=== PATIENT | male | born 1975 | race Caucasian/White ===

== ENCOUNTER 2017-12-13 10:01 | Emergency (ER) | payer OTHER ==
[~2017-12-13] VITALS: Ht 188 cm; Wt 128.0 kg
[2017-12-13 10:19] VITALS: BP 133/92
[2017-12-13] MEDS ORDERED: cefTRIAXone 1,000 MG in LIDOCAINE 1% ***ER ONLY *** 2.1 ML IM ONE (11:00)
[2017-12-13] MEDS ORDERED: KETOROLAC 60 MG/2 ML VIAL IM ONE (11:00)
[2017-12-13] MEDS ORDERED: LEVOFLOXACIN 500 MG TAB PO ONE (11:00)
[2017-12-13 11:33] LABS: BILIRUBIN,URINE NEGATIVE (NEGATIVE); BLOOD, URINE 2+ (NEGATIVE); COLOR,URINE YELLOW (YELLOW); LEUKOCYTE ESTERASE ,URINE 1+ (NEGATIVE); NITRITE, URINE POSITIVE (NEGATIVE); UGLUCOSE NEGATIVE (NEGATIVE)
[2017-12-13 11:36] LABS: APPEARANCE,URINE CLOUDY (CLEAR)
[2017-12-13 11:39] LABS: BARBITURATE, URINE NEG. ng/ml (NEG <=200); BENZODIAZEPINE, URINE NEG. ng/mL (NEG <=200); CANNABINOID, URINE POS. ng/mL (NEG <=50); COCAINE, URINE NEG. ng/mL (NEG <=300); OPIATE, URINE NEG. ng/mL (NEG <=2000)
[2017-12-13 11:49] LABS: RBC,URINE 11-20 (MOD) /HPF (0-5)
[2017-12-13 11:50] LABS: WBC,URINE 20-60 /HPF (0-5)
[2017-12-13 12:29] LABS: PHENCYCLIDINE SCREEN,URINE NEG ng/mL (NEG <=25)
[2017-12-13 14:12] VITALS: BP 128/87
== END 2017-12-13 14:11 | disposition home or self-care (01) ==
LOC: MED 10:01
DX: N45.1 Epididymitis (principal); N43.3 Hydrocele, unspecified; N39.0 Urinary tract infection, site not specified
CPT/HCPCS: 76870; 80305; 81001; 87086; 96372; 99285; J0696; J1885; J2001; Q0092

== ENCOUNTER 2020-04-01 22:50 | Emergency (ER) | payer SELFPAY ==
[~2020-04-01] VITALS: Ht 188 cm; Wt 108.9 kg
[2020-04-01 22:55] VITALS: BP 140/87
--- NOTE | 2020-04-01 22:58 | NUR ---
to lobby a/w bed ambulatory
--- NOTE | 2020-04-01 23:11 | NUR ---
44 YR OLD MALE PRESENTED TO THE ER WITH CHIEF COMPLAINT OF RIGHT ANKLE/FOOT PAIN. PATIENT IS AOX4. PATIENT STATES RIGHT FOOT/ANKLE PAIN IS 9/10. PATIENT STATES PAIN IS NON-RADIATING AND DESCRIBES IT A BURNING PAIN WITH A SUDDEN ONSET 2 DAYS AGO. PATIENT HAS SLIGHT REDNESS IN THE MEDIAL ASPECT OF RIGHT ANKLE WITH NO SIGNS OF SWELLING. PATIENT STATED SMOKING 2 MARIJUANA JOINTS 2 DAYS AGO. PATIENT BREATHING IS UNLABORED WITH EQUAL RISE AND FALL UPON RESPIRATIONS. BED IS LOCKED IN LOWEST POSITION WITH 2 SIDE RAILS UP. CALL LIGHT WITHIN REACH. WILL CONTINUE TO MONITOR. HISTORY- NONE ALLERGIES- NONE
[2020-04-01 23:34] VITALS: BP 140/87
--- NOTE | 2020-04-01 23:34 | NUR ---
Patient discharged with v/s stable. Written and verbal after care instructions given and explained. Patient alert, oriented and verbalized understanding of instructions. Ambulatory with steady gait. All questions addressed prior to discharge. ID band removed. Patient advised to follow up with PMD. Rx of BACTRIM AND KEFLEX given. Patient educated on indication of medication including possible reaction and side effects. Opportunity to ask questions provided and answered.
== END 2020-04-01 23:34 | disposition home or self-care (01) ==
LOC: MED 22:50
DX: L03.116 Cellulitis of left lower limb (principal); L03.115 Cellulitis of right lower limb
CPT/HCPCS: 99283; 99284

== ENCOUNTER 2020-05-01 22:19 | Emergency (ER) | payer SELFPAY ==
[~2020-05-01] VITALS: Ht 188 cm; Wt 113.4 kg
[2020-05-01 22:26] VITALS: BP 134/75
--- NOTE | 2020-05-01 22:27 | NUR ---
TO BED AMBULATORY
--- NOTE | 2020-05-01 22:52 | NUR ---
44 y/o male c/o of bilateral leg pain x 1 day. redness noted bilateral with nonpitting edema; warm to touch.pain is a burning 9/10; non-radiating. a/ox4 gcs 15; symmetrical breathing; abdomen soft and nondistended. patient able to ambulate without difficulty. ermd made aware. will continue to monitor. HR is 111 at this time nkda meds-none pmh: none
[2020-05-01] MEDS ORDERED: CLINDAMYCIN 600 MG/4 ML VIAL IM STA (23:58)
[2020-05-02 00:38] VITALS: BP 139/97
--- NOTE | 2020-05-02 00:38 | NUR ---
Patient discharged with v/s stable. Written and verbal after care instructions given and explained. Patient alert, oriented and verbalized understanding of instructions. Ambulatory with steady gait. All questions addressed prior to discharge. ID band removed. Patient advised to follow up with PMD. Rx of Clindamycin given. Patient educated on indication of medication including possible reaction and side effects. Opportunity to ask questions provided and answered.
== END 2020-05-02 00:38 | disposition home or self-care (01) ==
LOC: MED 22:19
DX: L03.115 Cellulitis of right lower limb (principal); L03.116 Cellulitis of left lower limb; R00.0 Tachycardia, unspecified
CPT/HCPCS: 96372; 99283; J3490

== ENCOUNTER 2020-05-11 14:17 | Inpatient (IN) | payer MEDICAID, SELFPAY ==
[~2020-05-11] VITALS: Ht 182.9 cm; Wt 124.3 kg
--- NOTE | 2020-05-11 07:20 | NUR ---
ENDORSED TO ANIMAL TECHNICIAN NURSE FOR CONTINUITY OF CARE. PT IS STABLE. Addendum: 05/11/20 at 194 by Leonel Davidson RN RN WRONG TIME 1919*
[2020-05-11 14:24] VITALS: BP 143/80
--- NOTE | 2020-05-11 14:28 | NUR ---
Pt ambulated to ER bed 8.
--- NOTE | 2020-05-11 14:42 | NUR ---
44 YEAR OLD MALE COMPLAINS OF BLE EDEMA EXACERBATION X 1 WEEK. PER PATIENT, BLE PRESENT X 1 MONTH, WITH NEW ONSET UNBEARABLE DISCOMFORT TODAY. PATIENT DENIES PAIN BUT STATES "FEELS LIKE A BAD SUNBURN". PITTING EDEMA PRESENT BLE, CAP REFILL <3 SECONDS ALL TOES, SENSATION INTACT. BLE SKIN INTACT, RED IN COLOR, WARM TEMPERATURE. PATIENT DENIES DRAINAGE. PATIENT CAME IN WITH PRESCRIBED CLINDAMYCIN; CLAIMS TO FEEL "BURNING SENSATION" WHEN SWALLOWED. AO4, SKIN WARM AND DRY, BREATHING EVEN AND UNLABORED. BED IN LOWEST POSITION, LOCKED, X1 SIDERAIL UP, LOWER EXTREMITIES ELEVATED. PMH - CELLULITIS NKA
[2020-05-11] MEDS ORDERED: KETOROLAC 15 MG/ML VIAL IVP ONE (15:20)
[2020-05-11] MEDS ORDERED: VANCOMYCIN 500 MG in DEXTROSE 5% 100 ML IV SCH (15:20)
--- NOTE | 2020-05-11 15:30 | NUR ---
PATIENT AWAKE AND ALERT, BREATHING EVEN AND UNLABORED. NO APPARENT DISTRESS. WILL CONTINUE TO MONITOR.
[2020-05-11 15:54] LABS: BASOPHILS # (AUTO) 0.1 K/uL (0.00-0.22); BASOPHILS % (AUTO) 1.1 % (0.0-2.0); EOSINOPHILS # (AUTO) 0.4 K/uL (0-0.4); EOSINOPHILS % (AUTO) 4.7 % (0.0-4.0); HEMOGLOBIN 12.4 g/dL (12.0-18.0); LYMPHOCYTES # (AUTO) 1.9 K/uL (2.0-11.5); LYMPHOCYTES % (AUTO) 21.6 % (20.5-51.1); MEAN CORPUSCULAR HEMOGLOBIN 29 pg (27-31); MEAN CORPUSCULAR HGB CONC 33 g/dL (33-37); MEAN CORPUSCULAR VOLUME 89.4 fL (80-94); MONOCYTES # (AUTO) 0.6 K/uL (0.8-1.0); MONOCYTES % (AUTO) 6.8 % (1.7-9.3); NEUTROPHILS # (AUTO) 5.7 K/uL (1.8-7.7); NEUTROPHILS % (AUTO) 65.8 % (42.2-75.2); PLATELET COUNT (AUTO) 338 K/uL (140-450); RED BLOOD CELL COUNT(AUTO) 4.25 MIL/uL (4.20-6.10); RED CELL DISTRIBUTION WIDTH 15.1 % (11.6-13.7); WHITE BLOOD COUNT (AUTO) 8.7 K/uL (4.8-10.8)
[2020-05-11] MEDS ORDERED: cefTRIAXone 1,000 MG VIAL ONE (16:05)
[2020-05-11 16:11] LABS: PROTHROMBIN TIME 9.3 secs (10.8-13.4)
[2020-05-11] MEDS ORDERED: VANCOMYCIN 500 MG VIAL ONE (16:34)
[2020-05-11 16:39] LABS: ALBUMIN 2.9 g/dL (3.4-5.0); ANION GAP 9.8 (8-16); CARBON DIOXIDE 27.9 mmol/L (21-32); POTASSIUM 3.7 mmol/L (3.5-5.1); TOTAL BILIRUBIN 0.2 mg/dL (0.0-1.0)
--- NOTE | 2020-05-11 16:51 | NUR ---
PATIENT AWAKE AND ALERT, BREATHING EVEN AND UNLABORED. NO APPARENT DISTRESS. WILL CONTINUE TO MONITOR.
--- NOTE | 2020-05-11 16:58 | NUR ---
DONTE SWAB OBTAINED AND GIVEN TO LAB
[2020-05-11] MEDS ORDERED: KETOROLAC 15 MG/ML VIAL IVP PRN (17:25)
[2020-05-11] MEDS ORDERED: NACL 0.9% 1,000 ML IV ONE (17:25)
[2020-05-11] MEDS ORDERED: CLIN150C1 PO (17:41)
--- NOTE | 2020-05-11 17:50 | NUR ---
RECEIVED TELEPHONE REPORT FROM ER NURSE.
--- NOTE | 2020-05-11 17:51 | NUR ---
Patient will be admitted to care of Dr Godinez. Admited to [facility]. Will go to room 106A. Belongings list completed. Report to Thaddeus MATIAS.
--- NOTE | 2020-05-11 17:55 | NUR ---
PATIENT TAKEN TO [facility] 106A VIA GURNEY BY CATHERINE PAN
[2020-05-11 18:00] VITALS: BP 112/58
--- NOTE | 2020-05-11 18:00 | NUR ---
RECEIVED PATIENT REPORT FROM ER NURSE. PATIENT IS AO X4. ABLE TO MAKE NEEDS KNOWN. RESPIRATIONS EVEN AND UNLABORED. ON ROOM AIR. NO S/S OF RESPIRATORY DISTRESS NOTED. SKIN IS WARM, DRY, AND INTACT. PT HAS PITTING EDEMA +3 ON BILATERAL LOWER EXTREMITIES. NO COMPLAIN OF PAIN AT THIS MOMENT. ABDOMEN SOFT, ROUND, AND NONDISTENDED. BOWEL SOUNDS ACTIVE IN ALL 4 QUADRANTS. PLAN OF CARE DISCUSSED. SAFETY PRECAUTIONS IN PLACE. BED IN LOW POSITION AND CALL LIGHT WITHIN REACH. WILL CONTINUE TO MONITOR.
--- NOTE | 2020-05-11 19:20 | NUR ---
ENDORSED TO BUSINESS AND FINANCIAL COUNSEL NURSE FOR CONTINUITY OF CARE. PT IS STABLE.
[2020-05-11 20:00] VITALS: BP 127/65
[2020-05-12 04:00] VITALS: BP 143/88
--- NOTE | 2020-05-12 07:57 | NUR ---
Patient awake, alert and oriented. Redness noted to his bilateral feet and swelling to lower extremities. Denies pain and noted to be sitting on edge of the bed.
--- NOTE | 2020-05-12 08:04 | NUR ---
PATIENT HAS BEEN SCREENED AND CATEGORIZED LOW NUTRITION RISK. PATIENT WILL BE SEEN WITHIN 7 DAYS OF ADMISSION. 05/18/[address]
[2020-05-12 08:25] VITALS: BP 130/77
[2020-05-12] MEDS ORDERED: ONDANSETRON 4 MG/2 ML VIAL IM/IVP PRN (10:05)
[2020-05-12] MEDS ORDERED: ACETAMINOPHEN 325 MG TAB PO PRN (10:05)
[2020-05-12] MEDS ORDERED: KETOROLAC 15 MG/ML VIAL IVP PRN (10:05)
[2020-05-12] MEDS ORDERED: NACL 0.9% 1,000 ML IV SCH (10:05)
[2020-05-12] MEDS ORDERED: DOCUSATE SODIUM 100 MG GELCAP PO PRN (10:05)
[2020-05-12] MEDS ORDERED: ZOLPIDEM 5 MG TAB PO PRN (10:05)
[2020-05-12] MEDS ORDERED: LORazepam 2 MG/ML VIAL IM/IVP PRN (10:05)
[2020-05-12] MEDS ORDERED: POTASSIUM CHLORIDE 10 MEQ TABER PO PRN (10:10)
[2020-05-12] MEDS ORDERED: DEXTROSE 50% 50 ML SYR IVP PRN (10:10)
[2020-05-12] MEDS ORDERED: INSULIN LISPRO SLIDING SCALE 100 UNITS/ML VIAL SUBQ PRN (10:10)
[2020-05-12] MEDS ORDERED: MAG SULF 2000 MG/WATER PREMIX 50 ML IV PRN (10:10)
[2020-05-12] MEDS ORDERED: VANCOMYCIN PER PHARMACY MC PRN (10:15)
[2020-05-12] MEDS ORDERED: ECOTRIN 81 MG TABEC PO SCH ×2 (11:00)
--- NOTE | 2020-05-12 11:16 | NUR ---
Patient leaving against medical advice. Told importance of staying, following orders per physician and risks but patient opted to leave.
[2020-05-12] MEDS ORDERED: BLOOD GLUCOSE MONITORING 1 DEV DEV FS SCH (11:30)
[2020-05-12] MEDS ORDERED: VANCOMYCIN HCL 1.25 GM in DEXTROSE 5% 250 ML IV SCH (13:00)
[2020-05-12] MEDS ORDERED: ATORVASTATIN 20 MG TAB PO SCH (21:00)
[2020-05-13] MEDS ORDERED: ECOTRIN 81 MG TABEC PO SCH (09:00)
== END 2020-05-12 11:20 | disposition left against medical advice (07) | DRG 346 ==
LOC: MED 14:17 → MTU 17:28
DX: I77.6 Arteritis, unspecified (principal); L03.116 Cellulitis of left lower limb; L03.115 Cellulitis of right lower limb; Z53.29 Procedure and treatment not carried out because of patient's decision for other reasons; Z20.822 Contact with and (suspected) exposure to COVID-19; E44.0 Moderate protein-calorie malnutrition; I73.9 Peripheral vascular disease, unspecified; E86.0 Dehydration; G92 Toxic encephalopathy; M77.32 Calcaneal spur, left foot; M77.31 Calcaneal spur, right foot
CPT/HCPCS: 36415; 71045; 73590; 80053; 85025; 85610; 85651; 85730; 86140; 87040; 93925; 93970; J0696; J1885; J3370; J7030; J7060